=== PATIENT | female | born 1955 | race Caucasian/White ===

== ENCOUNTER → 2017-01-16 | Outpatient (CLI) | payer OTHER ==
[~2017-01-16] MED LIST: AMLO5TAB2 PO; ATEN50TA41 PO; COLE625T12 PO; ESTR42.53 TP; FENO45CA PO; IBUP200C5 PO; LIRA0.6P2 INJ; LISI1TAB5 PO; MAGN400T7 PO; METF500T4 PO; METOPROLOL PO; MULT-658 PO; OMEP-110 PO; PRAV20TA2 PO; TOLT4CAP PO; TOVIAZ PO; WARF5TAB7 PO
== END | disposition home or self-care (01) ==
LOC: CFH 08:01
PROVIDERS: ATTEND Family Medicine
DX: K76.0 Fatty (change of) liver, not elsewhere classified (principal); K59.00 Constipation, unspecified; E78.5 Hyperlipidemia, unspecified; R16.1 Splenomegaly, not elsewhere classified; Z90.49 Acquired absence of other specified parts of digestive tract
CPT/HCPCS: 76700

== ENCOUNTER 2017-03-31 18:30 | Observation (INO) | payer OTHER ==
[~2017-03-31] VITALS: Ht 170.2 cm; Wt 101.0 kg
[2017-03-31] MEDS ORDERED: SODIUM CHLORIDE 0.9% 1,000ML IVBOLUS ONE (19:30)
[2017-03-31] MEDS ORDERED: SODIUM CHLORIDE FLUSH 10ML SYR IVF ONE (19:30)
[2017-03-31 19:38] LABS: HEMATOCRIT 37.6 % (34.6-47.8); HEMOGLOBIN 12.7 g/dL (11.7-16.4); WHITE BLOOD COUNT 8.8 x10^3/uL (3.4-10)
[2017-03-31 19:49] LABS: BLOOD UREA NITROGEN 25 mg/dL (7-18)
[2017-03-31] MEDS ORDERED: hydrALAzine 20 MG/ML, 1ML IVPush PRN (22:00)
[2017-03-31] MEDS ORDERED: DIPHENHYDRAMINE 50 MG/ML, 1ML IVPush PRN (22:00)
[2017-03-31] MEDS ORDERED: ONDANSETRON 2MG/ML, 2ML IVPush PRN (22:00)
[2017-03-31] MEDS: FAMOTIDINE 20 MG/2 ML IVPush SCH (22:17)
[2017-03-31] MEDS: SODIUM CHLORIDE 0.9% 1,000 ML IV SCH (22:17)
[2017-03-31 22:20] VITALS: BP 158/83
[2017-04-01 01:14] VITALS: BP 138/79
[2017-04-01 07:40] VITALS: BP_SYST 145; BP_SYST 45; BP_DIAS 90
[2017-04-01] MEDS ORDERED: (Liraglutide (Victoza 3-Pak) 1.8 MG) HOMEINJ SCH (09:00)
[2017-04-01] MEDS ORDERED: metFORMIN 500 MG TABLET PO SCH (09:00)
[2017-04-01] MEDS ORDERED: MAGNESIUM OXIDE 400 MG TABLET PO SCH (09:00)
[2017-04-01] MEDS ORDERED: COLESEVELAM 625 MG TABLET PO SCH (09:00)
[2017-04-01] MEDS ORDERED: AMLODIPINE 5 MG TABLET PO SCH (09:00)
[2017-04-01] MEDS ORDERED: MULTIVITAMIN 1 TABLET PO SCH (09:00)
[2017-04-01] MEDS: FAMOTIDINE 20 MG/2 ML IVPush SCH (09:00)
[2017-04-01] MEDS: SODIUM CHLORIDE 0.9% 1,000 ML IV SCH (10:54)
[2017-04-01] MEDS ORDERED: PRAVASTATIN 20 MG TABLET PO SCH (21:00)
== END 2017-04-01 12:07 | disposition home or self-care (01) ==
LOC: ED 19:22 → INTOOBSV 20:26 → EDIP 20:26 → 4WST 21:33 → DCLOUNGE 04-01 11:43
PROVIDERS: ADMIT Hospitalist; ATTEND Family Medicine
DX: T78.3XXA Angioneurotic edema, initial encounter (principal); T46.4X5A Adverse effect of angiotensin-converting-enzyme inhibitors, initial encounter; K21.9 Gastro-esophageal reflux disease without esophagitis; I48.91 Unspecified atrial fibrillation; I10 Essential (primary) hypertension; E11.9 Type 2 diabetes mellitus without complications; E78.5 Hyperlipidemia, unspecified; Z79.84 Long term (current) use of oral hypoglycemic drugs
CPT/HCPCS: 36415; 80048; 81003; 82040; 85025; 93005; 96361; 96374; 99285; G0378; J7030; S0028

== ENCOUNTER → 2017-12-15 | Outpatient (CLI) | payer OTHER ==
[~2017-12-15] MED LIST changes: +IBUP-1623 PO; -IBUP200C5 PO; -METF500T4 PO; +METF500T5 PO; +WARF-36 PO; -WARF5TAB7 PO
== END | disposition home or self-care (01) ==
LOC: CFH 10:44 → EDSTATUS 11:30
PROVIDERS: ATTEND Family Medicine
DX: E11.9 Type 2 diabetes mellitus without complications (principal); R10.2 Pelvic and perineal pain; Z90.710 Acquired absence of both cervix and uterus
CPT/HCPCS: 76856

== ENCOUNTER 2018-08-16 12:58 | Emergency (ER) | payer OTHER ==
[~2018-08-16] VITALS: Ht 170.2 cm; Wt 99.3 kg
[~2018-08-16 12:58] MED LIST changes: +AMLO-150 PO; -AMLO5TAB2 PO; +METF500T17 PO; -METF500T5 PO
[2018-08-16 13:00] VITALS: BP 158/89
--- NOTE | 2018-08-16 14:53 | NUR ---
DR YEH AT BEDSIDE. ASSESSMENT IN PROGRESS
[2018-08-16 15:58] LABS: BASOPHILS # (AUTO) 0.03 x10^3/uL (0-0.1); BASOPHILS % (AUTO) 0 % (0-1); EOSINOPHILS # (AUTO) 0.08 x10^3/uL (0-0.4); EOSINOPHILS % (AUTO) 1 % (1-7); LYMPHOCYTES # (AUTO) 1.52 x10^3/uL (1-3.4); LYMPHOCYTES % (AUTO) 24 % (22-44); MD NO; MEAN CORPUSCULAR HEMOGLOBIN 30.4 pg (27.0-34.8); MEAN CORPUSCULAR HGB CONC 33.1 g/dL (32.4-35.8); MEAN CORPUSCULAR VOLUME 91.9 fL (80-100); MEAN PLATELET VOLUME 8.4 fL (7.4-10.4); MONOCYTES # (AUTO) 0.37 x10^3/uL (0.2-0.8); MONOCYTES % (AUTO) 6 % (2-9); NEUTROPHILS # (AUTO) 4.35 x10^3/uL (1.8-6.8); NEUTROPHILS % (AUTO) 69 % (42-75); PLATELET COUNT 206 x10^3/uL (130-400); RED BLOOD COUNT 4.32 x10^6/uL (3.82-5.3); RED CELL DISTRIBUTION WIDTH 13.4 % (9.6-15.2)
[2018-08-16] MEDS ORDERED: SODIUM CHLORIDE FLUSH 10ML SYR IVF ONE (16:00)
--- NOTE | 2018-08-16 16:00 | NUR ---
[facility] PENDING LAB/CREATINE.
[2018-08-16 16:08] LABS: ALBUMIN 3.9 g/dL (3.4-5.0); ANION GAP 8 mmol/L (5-15); CALCIUM 8.9 mg/dL (8.5-10.1); CHLORIDE 109 mmol/L (98-107); CREATININE 1.24 mg/dL (0.55-1.02); HIGH-SENSITIVITY CRP 0.19 mg/dL (0.02-0.30)
[2018-08-16 16:37] LABS: HCT (SEDRATE) 39.7 % (34.6-47.8)
[2018-08-16] MEDS ORDERED: OMNIPAQUE 350 MG/ML, 100ML BOTTLE ONE (16:41)
== END 2018-08-16 18:14 | disposition home or self-care (01) ==
LOC: ED 13:39
DX: H54.62 Unqualified visual loss, left eye, normal vision right eye (principal); E78.00 Pure hypercholesterolemia, unspecified; K21.9 Gastro-esophageal reflux disease without esophagitis; E78.5 Hyperlipidemia, unspecified; E11.9 Type 2 diabetes mellitus without complications; I48.91 Unspecified atrial fibrillation; Z90.710 Acquired absence of both cervix and uterus; Z87.891 Personal history of nicotine dependence
CPT/HCPCS: 36415; 70450; 70496; 70498; 80048; 82040; 85025; 85651; 86141; 93306; 99284; Q9967

== ENCOUNTER 2019-07-20 20:11 | Emergency (ER) | payer MEDICARE, OTHER ==
[~2019-07-20] VITALS: Ht 167.6 cm; Wt 101.3 kg
[~2019-07-20 20:11] MED LIST changes: +LISI1TAB19 PO; -LISI1TAB5 PO; -MAGN400T7 PO; +MAGN400T9 PO
[2019-07-20 20:14] VITALS: BP 162/99
[2019-07-20] MEDS ORDERED: METHOCARBAMOL 750 MG TABLET ONE (20:43)
[2019-07-20] MEDS ORDERED: KETOROLAC 30 MG/1 ML ONE (20:44)
[2019-07-20] MEDS ORDERED: KETOROLAC 30 MG/1 ML IM ONE (21:00)
[2019-07-20] MEDS ORDERED: METHOCARBAMOL 750 MG TABLET PO ONE (21:00)
== END 2019-07-20 21:41 | disposition home or self-care (01) ==
LOC: ED 21:01
DX: S16.1XXA Strain of muscle, fascia and tendon at neck level, initial encounter (principal); I10 Essential (primary) hypertension; E78.00 Pure hypercholesterolemia, unspecified; E11.9 Type 2 diabetes mellitus without complications; Z90.49 Acquired absence of other specified parts of digestive tract; X50.0XXA Overexertion from strenuous movement or load, initial encounter; Y93.89 Activity, other specified; Y92.89 Other specified places as the place of occurrence of the external cause; Y99.8 Other external cause status
CPT/HCPCS: 72125; 96372; 99284; J1885

== ENCOUNTER 2019-11-18 17:23 | Emergency (ER) | payer MEDICARE, OTHER ==
[~2019-11-18] VITALS: Ht 172.7 cm; Wt 100.7 kg
--- NOTE | 2019-11-18 18:14 | NUR ---
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
--- NOTE | 2019-11-18 18:14 | NUR ---
PT AMBULATED TO ROOM WITH STEADY GAIT.
[2019-11-18 18:21] VITALS: BP 151/93
== END 2019-11-18 19:06 | disposition home or self-care (01) ==
LOC: ED 18:50
DX: B02.9 Zoster without complications (principal); E11.9 Type 2 diabetes mellitus without complications; K21.9 Gastro-esophageal reflux disease without esophagitis; I48.91 Unspecified atrial fibrillation; E78.00 Pure hypercholesterolemia, unspecified; E78.5 Hyperlipidemia, unspecified; I10 Essential (primary) hypertension; Z90.49 Acquired absence of other specified parts of digestive tract; Z90.710 Acquired absence of both cervix and uterus
CPT/HCPCS: 99283